=== PATIENT | male | born 1980 | race Caucasian/White ===

== ENCOUNTER 2025-01-09 00:40 | Emergency (ER) | payer OTHER ==
[~2025-01-09] VITALS: Ht 172.7 cm; Wt 87.0 kg
[2025-01-09 00:51] VITALS: BP 146/90; PULSE 83; RESP 18; TEMP 36.4; O2SAT 99
== END 2025-01-09 03:11 | disposition left against medical advice (07) ==
LOC: ER 00:40
DX: S30.811A Abrasion of abdominal wall, initial encounter (principal); I10 Essential (primary) hypertension; W22.8XXA Striking against or struck by other objects, initial encounter; Y93.89 Activity, other specified; Y92.89 Other specified places as the place of occurrence of the external cause; Y99.8 Other external cause status
CPT/HCPCS: 99283